=== PATIENT | female | born 1945 ===

== ENCOUNTER 2023-07-14 13:45 | Outpatient (CLI) | payer OTHER | END 2023-07-14 13:51 | disposition home or self-care (01) | LOC: RAD 13:45 | DX: M54.51 Vertebrogenic low back pain (principal) ==

== ENCOUNTER 2025-03-15 08:48 | Outpatient (CLI) | payer OTHER | END 2025-03-15 08:49 | disposition home or self-care (01) | LOC: NUCLEAR 08:48 | PROVIDERS: ATTEND General Practice | DX: I87.2 Venous insufficiency (chronic) (peripheral) (principal) ==